=== PATIENT | male | born 1990 | race Caucasian/White ===

== ENCOUNTER 2018-04-14 13:52 | Emergency (ER) | payer BC ==
[2018-04-14] MEDS: AZITHROMYCIN 250 MG TAB PO (15:18)
[2018-04-14] MEDS: LIDOCAINE 1% (MDV) 20 ML INJ SC (15:19)
[2018-04-14] MEDS: CEFTRIAXONE 250 MG INJ IM (15:19)
== END 2018-04-14 15:53 | disposition home or self-care (01) ==
LOC: FTE 13:52
DX: Z11.3 Encounter for screening for infections with a predominantly sexual mode of transmission (principal); F17.210 Nicotine dependence, cigarettes, uncomplicated
CPT/HCPCS: 87591; 96372; 99284-25